=== PATIENT | female | born 1980 | race African-American/Black ===

== ENCOUNTER 2019-08-19 20:30 | Inpatient (IN) | payer MEDICAID, OTHER ==
[2019-08-19] MEDS ORDERED: ePHEDrine SULFATE 50 MG/1 ML INJ IV PRN ×2 (21:09→23:17)
[2019-08-19] MEDS ORDERED: LIDOCAINE (2%) 20 MG/1 ML VIAL 20 ML MDV INFILTRATI ONE (21:09)
[2019-08-19] MEDS ORDERED: fentaNYL 100 MCG/2 ML INJ IV PRN (21:09)
[2019-08-19] MEDS ORDERED: TERBUTALINE 1 MG/1 ML INJ SUB-Q PRN (21:09)
--- NOTE | 2019-08-19 21:22 | History and Physical Report ---
History of Present Illness Date of examination: 08/19/19 Date of admission: 08/19/2019 Chief complaint: Contractions History of present illness: 39 year old presents with regular contractions. Patient states her contractions began last night. She reports bloody show. She denies LOF. She reports active movement. LMP 11/17/2018. EDC08/24/2019 based on 20 week US. significant for the following: AMA, bronchitis during (treated). labs are as follows: O+, antibody screen negative, RI, hepatitis B surface antigen negative, RPR nonreactive, HIV negative, chlamydia negative, gonorrhea negative, 1 hour sugar test 108, GBS negative, NIPS negative. Past History Past Medical History: no pertinent history Past Surgical History: no surgical history INTERVENTIONAL PHYSIATRIST History: abnormal PAP smear (+ HPV). denies: chlamydia, gonorrhea, hepatitis B, herpes, HIV, syphilis, trichomonas Family/Genetic History: diabetes, other (Down Syndrome (paternal niece)) Social history: lives with family, full code. denies: smoking, alcohol abuse, prescription drug abuse, IV drug use - Obstetrical History Expected Date of Delivery: 08/24/19 Actual Gestation: 39 Week(s) 2 Day(s) : 4 Para: 3 Hx # Term Pregnancies: 3 Number of Pregnancies: 0 Spontaneous Abortions: 0 Induced : 0 Number of Living Children: 3 Medications and Allergies Active Meds: Active Medications Ephedrine Sulfate (Ephedrine Sulfate) 10 mg IV Q2M PRN PRN Reason: Hypotension Fentanyl (Sublimaze) 100 mcg IV Q2H PRN PRN Reason: Pain,Severe (7-10) LABOR PAIN Oxytocin/Sodium Chloride (Pitocin/Ns 20 Unit/1000ml Drip) 20 units in 1,000 mls @ 125 mls/hr IV DIRECT PB Lactated Ringer's (Lactated Ringers) 1,000 mls @ 125 mls/hr IV DIRECT PB Lidocaine (Xylocaine 2%) 20 ml INFILTRATI ONCE ONE Stop: 08/19/19 21:10 Terbutaline Sulfate (Brethine) 0.25 mg SUB-Q ONCE PRN PRN Reason: Hyperstimulation/Hypertonicity Review of Systems All systems: negative (contractions) - Vital Signs Vital signs: Vital Signs Pulse BP 81 111/71 08/19/19 20:58 08/19/19 20:58 Temp Pulse Resp BP Pulse Ox 81 111/71 08/19/19 20:58 08/19/19 20:58 - Physical Exam Abdomen: Positive: normal appearance, soft. Negative: distention, tenderness, guarding, rigidity Genitourinary (Female): Positive: normal external genitalia, normal perenium. Negative: perineal/vulvar lesions Vagina: Positive: normal moisture Uterus: Positive: enlarged. Negative: tender Extremities: Positive: normal. Negative: tenderness, edema - Obstetrical FHR: category 2 Uterine Contraction Monitor Mode: External Cervical Dilatation: 5 Cervical Effacement Percentage: 70 station: -2 Uterine Contraction Pattern: Regular Uterine Contraction Intensity: Moderate Results All other labs normal. Assessment and Plan A: at 39 weeks, 2 days gestation. Active labor. GBS negative. P: Admit. EFM. Anticipate vaginal .
[2019-08-19 21:49] LABS: Hemoglobin 12.1 gm/dl (10.1-14.3)
[2019-08-19] MEDS ORDERED: LACTATED RINGERS 1,000 ML IV SCH (22:00)
[2019-08-19] MEDS ORDERED: OXYTOCIN 20 UNIT/1000ML DRIP 20 UNITS/1,000 ML BAG IV SCH (22:00)
[2019-08-19 22:16] LABS: Hematocrit 35.2 % (30.3-42.9); Mean Corpuscular HGB Conc 35 % (30-34); Mean Corpuscular Volume 93 fl (79-97); Platelet Count 199 K/mm3 (140-440); Red Blood Count 3.79 M/mm3 (3.65-5.03); Red Cell Distribution Width 14.4 % (13.2-15.2)
--- NOTE | 2019-08-19 22:27 | Event Note ---
Date: 08/19/19 SVE .
[2019-08-19] MEDS ORDERED: DEXMEDETOMIDINE 200 MCG/2 ML VIAL IV ONE (22:59)
[2019-08-19] MEDS ORDERED: NALOXONE 2 MG/2 ML INJ IV PRN (23:17)
--- NOTE | 2019-08-19 23:18 | Anesthesia Consultation ---
Anesthesia Consult and Med Hx Date of service: 08/19/19 - Airway Anesthetic Teeth Evaluation: Good ROM Head & Neck: Adequate Mental/Hyoid Distance: Adequate Mallampati Class: Class II Intubation Access Assessment: Good - Pulmonary Exam CTA: Yes - Cardiac Exam Cardiac Exam: RRR - Pre-Operative Health Status ASA Pre-Surgery Classification: ASA2, Emergency Proposed Anesthetic Plan: Epidural - Pulmonary Hx Asthma: No - Cardiovascular System Hx Hypertension: No - Central Nervous System Hx Seizures: No Hx Psychiatric Problems: No - Endocrine Hx Renal Disease: No Hx Hypothyroidism: No Hx Hyperthyroidism: No - Hematic Hx Anemia: No Hx Sickle Cell Disease: No - Other Systems Hx Alcohol Use: No
--- NOTE | 2019-08-19 23:20 | Progress Note ---
Labor Epidural - Labor Epidural Start Time: 23:03 Stop Time: 23:06 Performed by:: MAI PRINGLE Procedure: Patient is requesting a laboring epidural for laboring pain. Patient IDed, H&P reviewed, all questions and concerns were answered, and consent was signed. Timeout was performed at bedside. Patient in sitting position. Sterile prep and drape was performed. [3] ml of 1% lidocaine skin wheal at L 3- L 4. 18- gauge Touhy epidural needle was advanced to loss of resistance with air technique. Negative CSF negative blood. Epidural catheter advanced to 15 centimeters. - Aspiration - test dose. Sterile dressing applied. Patient tolerated procedure.
[2019-08-19] MEDS ORDERED: fentaNYL-BUPIV 2 MCG/ML-0.125% 200 MCG/100 ML BAG EPIDURAL SCH (23:45)
--- NOTE | 2019-08-20 03:56 | Event Note ---
Date: 08/20/19 I was called to the bedside for deep variables to 670-bpm. Patient noted to be complete, +1 station. FHT 80bpm. Good descent with pushing. Vacuum applied to 400mmHg. Patient encouraged to push, no excess traction or force applied. With one push she delivered the vertex in TRAE position. Delivery atraumatic. Remainder of delivery via Ms John CRANDALL. Yris Cardona MD
[2019-08-20] MEDS ORDERED: HYDROcodone/ACETAMINOPHEN 5-325 MG TAB PO PRN (04:23)
[2019-08-20] MEDS ORDERED: diphenhydrAMINE 25 MG CAP PO PRN (04:23)
[2019-08-20] MEDS ORDERED: WITCH HAZEL/ GLYCERIN PAD TP PRN (04:23)
[2019-08-20] MEDS ORDERED: MAGNESIUM HYDROXIDE (MOM) ORAL LIQD UDC PO PRN (04:23)
[2019-08-20] MEDS ORDERED: LANOLIN/ZINC/DIMETHICONE (LANSINOH) 7 GM TP PRN (04:23)
--- NOTE | 2019-08-20 04:32 | Procedure Note ---
OB Delivery Note - Delivery Date of Delivery: 08/20/19 Surgeon: JOSE LOPEZ Estimated blood loss: other (250 cc) - Vaginal Delivery presentation: vertex Delivery position: OA Intrapartum events: mult.variable deceleratio Delivery induction: none Delivery augmentation: rupture of membranes Delivery monitor: external FHT, external uterine, internal FHT Route of delivery: vacuum extraction Indicators for instrumentation: nonreassuring FHR tracing Delivery placenta: spontaneous Delivery cord: 3 umbilical vessels Episiotomy: none Delivery laceration: 1st degree Delivery repair: vicryl Anesthesia: epidural Delivery comments: Dr. Cardona called to delivery room when patient's cervix was 9 cm dilated and 0 station due to deep variable and prolonged FHR decelerations. Until MD arrival patient was positioned in hands and knees position. Upon Dr. Cardona's arrival patient was noted to be completely dilated and she began to push. Vacuum assisted vaginal delivery of vertex by Dr. Cardona. Remainder of delivery by Ruperto Lopez CNM. Placenta delivered spontaneously and intact. EBL 250 cc. Pitocin to IV fluids after delivery of placenta. Fundus firm and midline. First degree perineal/vaginal laceration repaired with 2-0 vicryl in usual sterile fashion. No other lacerations noted. Vaginal sweep negative. Sponge count correct. Mother and baby stable.
--- NOTE | 2019-08-20 09:39 | Post Anesthesia Evaluation ---
- Post Anesthesia Evaluation Patient Participated: Yes Airway Patent: Yes Stable Respiratory Function: Yes Nausea/Vomiting: No Temp > 96.8F: Yes Pain Manageable: Yes Adequeate Hydration: Yes Anesthesia Complications: No Block Receding Appropriately: Yes Patient on Ventilator: No
[2019-08-20] MEDS: IBUPROFEN 600 MG TAB PO SCH (10:12)
[2019-08-20 17:07] LABS: Hematocrit 34.3 % (30.3-42.9); Hemoglobin 11.9 gm/dl (10.1-14.3)
[2019-08-21] MEDS: IBUPROFEN 600 MG TAB PO SCH (05:19)
--- NOTE | 2019-08-21 09:58 | Progress Note ---
Assessment and Plan - Patient Problems (1) Status post vacuum-assisted vaginal delivery Current Visit: Yes Status: Acute Plan to address problem: PPD 1 - stable Continue routine orders Discharge to home today Follow-up at [facility] as needed or in 6 weeks for exam (2) Single live Current Visit: Yes Status: Acute Subjective - Subjective Date of service: 08/21/19 Principal diagnosis: PPD #1; s/p VAVD Interval history: see [employer] - H&P, Event Notes and OB Delivery Procedure Note Patient reports: appetite normal, voiding normally, pain well controlled, ambulating normally, no dizzy ambulation [place]: doing well, nursing well Objective - Vital Signs Latest vital signs: Vital Signs Temp Pulse Resp BP BP Pulse Ox 08/21/19 08:54 98.3 F 68 18 94/65 99 08/21/19 00:39 98.1 F 69 18 94/63 97 08/20/19 16:25 97.8 F 72 20 92/56 96 08/20/19 12:19 98.4 F 72 20 95/59 98 Intake and Output 08/20/19 08/21/19 08/21/19 23:59 07:59 15:59 Intake Total 480 360 Balance 480 360 Intake: Oral 120 360 Intake, Free Water 360 Other: Total, Intake Amount 120 360 Voiding Method Toilet # Voids Void 1 2 - Exam Cardiovascular: Present: Regular rate Lungs: Present: Clear to auscultation, Normal air movement Abdomen: Present: normal appearance, soft Vulva: both: laceration/episiotomy (well approximated) Uterus: Present: normal, firm, fundal height below umbilicus Extremities: Present: normal Comments: scant
--- NOTE | 2019-08-21 10:05 | Discharge Summary ---
Providers - Providers Date of Admission: 08/19/19 22:29 Date of discharge: 08/21/19 Attending physician: AHMET MCARTHUR MD Primary care physician: AHMET MCARTHUR MD Hospitalization Reason for admission: active labor, IUP at term Delivery: vacuum extraction Episiotomy: none Laceration: 1st degree Other procedures: none complications: none Discharge diagnosis: IUP at term delivered [place] baby: male Hospital course: Uncomplicated Condition at discharge: Stable Disposition: [place]-01 TO HOME OR SELFCARE - Discharge Diagnoses (1) Status post vacuum-assisted vaginal delivery Status: Acute (2) Single live Status: Acute Plan - Provider Discharge Summary Activity: routine, no sex for 6 weeks, no heavy lifting 4 weeks, no strenuous exercise Diet: routine Instructions: routine Additional instructions: [] Smoking cessation referral if applicable(refer to patient education folder for contact #) [] Refer to [facility]'s [facility] Booklet Call your doctor immediately for: * Fever > 100.5 * Heavy vaginal bleeding ( >1 pad per hour) * Severe persistent headache * Shortness of breath * Reddened, hot, painful area to leg or breast * Drainage or odor from incision. * Keep incision clean and dry at all times and follow doctor's instructions regarding bathing/showering - Follow up plan Follow up: AHMET MCARTHUR MD [Primary Care Provider] - 6 Weeks (Follow-up at [facility] as needed or in 6 weeks for exam)
[2019-08-21 13:39] VITALS: BP 105/70
== END 2019-08-21 15:05 | disposition home or self-care (01) | DRG 807 ==
LOC: TRG 20:30 → APU 20:31 → TRG 21:09 → APU 22:29 → LD 08-20 00:18 → OB 08-20 07:43
PROVIDERS: ADMIT Obstetrics & Gynecology; ATTEND Obstetrics & Gynecology
PROC: 10E0XZZ Delivery of Products of Conception, External Approach (ICD-10-PCS; principal; 2019-08-20)
PROC: 3E0R3BZ Introduction of Anesthetic Agent into Spinal Canal, Percutaneous Approach (ICD-10-PCS; 2019-08-20)
PROC: 00HU33Z Insertion of Infusion Device into Spinal Canal, Percutaneous Approach (ICD-10-PCS; 2019-08-20)
PROC: 0HQ9XZZ Repair Perineum Skin, External Approach (ICD-10-PCS; 2019-08-20)
DX: O76 Abnormality in fetal heart rate and rhythm complicating labor and delivery (principal); Z37.0 Single live birth; Z3A.39 39 weeks gestation of pregnancy; O70.0 First degree perineal laceration during delivery
CPT/HCPCS: 36415; 85014; 85018; 85027; 86850; 86900; 86901; G0378; J2590; J3490; J7120